=== PATIENT | female | born 2005 | race Caucasian/White ===

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

== ENCOUNTER 2024-07-17 20:41 | Emergency (ER) | payer BC ==
[2024-07-17] MEDS: Amoxicillin/Clavulanate K 875-125 MG Tab PO ONE (22:47)
[2024-07-17] MEDS: Lidocaine/Epineph/Tetracaine 3 ML Syringe TOP ONE (22:47)
[2024-07-17] MEDS: Lidocaine 1% 10 ML MDV INJECT ONE (22:48)
[2024-07-17] MEDS: Diphtheria,Pertussis(Acell),Tetanus Vaccine 0.5 ML Syringe IM ONE (23:40)
== END 2024-07-17 23:45 | disposition home or self-care (01) ==
LOC: JD.ED 20:41
DX: S41.151A Open bite of right upper arm, initial encounter (principal); Z91.011 Allergy to milk products; Z23 Encounter for immunization; W45.0XXA Nail entering through skin, initial encounter
CPT/HCPCS: 12001; 90471; 90715; 99283; A9270; J3490